=== PATIENT | female | born 1990 | race American Indian/Alaskan Native ===

== ENCOUNTER 2016-12-09 19:14 | Emergency (ER) | payer OTHER, BC ==
[2016-12-09] MEDS ORDERED: TYLENOL PO ONE (20:08)
[2016-12-10 00:15] VITALS: BP 115/75
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
== END 2016-12-10 06:00 | disposition home or self-care (01) ==
LOC: ED 19:14
DX: M54.5 Low back pain (principal); V87.7XXA Person injured in collision between other specified motor vehicles (traffic), initial encounter; Y93.89 Activity, other specified; Y99.9 Unspecified external cause status; Y92.410 Unspecified street and highway as the place of occurrence of the external cause
CPT/HCPCS: 72050; 72100; 81025

== ENCOUNTER 2017-01-13 10:37 | Emergency (ER) | payer BC ==
[2017-01-13 11:02] VITALS: BP 115/81
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
== END 2017-01-13 14:00 | disposition home or self-care (01) ==
LOC: ED 10:37
DX: G43.909 Migraine, unspecified, not intractable, without status migrainosus (principal)
CPT/HCPCS: 99282

== ENCOUNTER 2019-07-12 14:46 | Emergency (ER) | payer OTHER ==
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
[2019-07-12] MEDS ORDERED: IBUPROFEN 800 MG TAB PO ONE (17:39)
[2019-07-12 18:34] LABS: HCG Qualitative,Urine Negative (Negative)
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
[2019-07-12] MEDS ORDERED: HYDROcodone/ACETAMINOPHEN 5-325 MG TAB PO ONE (20:45)
[2019-07-12] MEDS ORDERED: HYDROcodone/ACETAMINOPHEN 5-325 MG TAB ONE (20:48)
[2019-07-12 21:43] VITALS: BP 132/85
== END 2019-07-12 21:45 | disposition home or self-care (01) ==
LOC: ED 14:46
DX: M79.18 Myalgia, other site (principal); M54.9 Dorsalgia, unspecified
CPT/HCPCS: 72040; 72080; 81025